=== PATIENT | male | born 1975 | race Hispanic/Latino ===

== ENCOUNTER 2018-09-03 06:36 | Day surgery (SDC) | payer BC ==
[2018-09-02 15:28] LABS: BASOPHILS % (AUTO) 0.4 % (0.0-5.0); EOSINOPHILS % (AUTO) 0.4 % (0.0-8.0); HEMATOCRIT 46.9 % (42-54); MEAN CORPUSCULAR HEMOGLOBIN 29.3 pg (27.0-33.0); MEAN CORPUSCULAR HGB CONC 33.8 g/dL (32.0-36.0); MEAN CORPUSCULAR VOLUME 86.7 fL (79-99); NEUTROPHILS % (AUTO) 75.2 % (40.0-77.0); PLATELET COUNT (AUTO) 298 K/uL (130-400); RED BLOOD CELL COUNT(AUTO) 5.42 MIL/uL (4.50-6.20); RED CELL DISTRIBUTION WIDTH 13.2 % (11.0-15.5); WHITE BLOOD COUNT (AUTO) 10.6 K/uL (4.8-10.8)
[2018-09-02 15:36] VITALS: BP 152/89
[2018-09-02 15:39] LABS: POTASSIUM 4.5 mmol/L (3.5-5.1)
[~2018-09-03] VITALS: Ht 182.9 cm; Wt 116.5 kg
[2018-09-03] VITALS (13 sets, daily range): BP systolic 117–146; BP diastolic 59–88
[2018-09-03] MEDS ORDERED: LIDOCAINE PF 2% 5ML ABBOJECT ONE (06:59)
[2018-09-03] MEDS ORDERED: PROPOFOL 10 MG/ML 20ML VIAL IV ONE ×2 (06:59→08:31)
[2018-09-03] MEDS ORDERED: ONDANSETRON HCL 4 MG/2 ML VIAL ONE (06:59)
[2018-09-03] MEDS ORDERED: FENTANYL CITRATE PF 50 MCG/1 ML 2ML VIAL ONE ×2 (07:00→09:46)
[2018-09-03] MEDS ORDERED: MIDAZOLAM HCL 1 MG/ML 2ML VIAL ONE (07:00)
[2018-09-03] MEDS ORDERED: LACTATED RINGERS 1000ML 1,000 ML IV ONE (07:27)
[2018-09-03] MEDS ORDERED: CLINDAMYCIN 900 MG/D5% WATER 50 ML IV ONE (07:27)
[2018-09-03] MEDS ORDERED: ADDE10 PO (07:51)
[2018-09-03] MEDS ORDERED: PROG100I PO (07:51)
[2018-09-03] MEDS ORDERED: LOSA50TA25 PO (07:51)
[2018-09-03] MEDS ORDERED: [UNRECOGNIZED DRUG - OTHER] IV SCH ×2 (08:00)
[2018-09-03] MEDS ORDERED: PRECEDEX IV SCH ×2 (08:00)
[2018-09-03] MEDS ORDERED: FAMOTIDINE/PF 20 MG/2 ML VIAL IV ONE (08:05)
[2018-09-03] MEDS ORDERED: DEXMEDETOMIDINE HCL 200 MCG in SODIUM CHLORIDE 0.9% 50 ML IV SCH (08:23)
[2018-09-03] MEDS ORDERED: CLINDAMYCIN PHOSPHATE 150 MG/ML 6ML VIAL ONE (08:48)
[2018-09-03] MEDS ORDERED: BUPIVACAINE/PF 0.25% 30ML VIAL IJ ONE (09:22)
[2018-09-03] MEDS ORDERED: TYL3 PO (09:36)
[2018-09-03] MEDS ORDERED: CLIN300C3 PO (09:36)
[2018-09-03] MEDS ORDERED: MEPERIDINE-PF 25 MG/ML SYG ONE ×2 (09:57→10:20)
[2018-09-03] MEDS ORDERED: PROMETHAZINE HCL 25 MG/ML 1ML AMPULE IM ONE (09:58)
== END 2018-09-03 11:28 | disposition home or self-care (01) ==
LOC: DAH 06:36
PROVIDERS: ATTEND Orthopaedic Surgery
DX: G56.01 Carpal tunnel syndrome, right upper limb (principal); I10 Essential (primary) hypertension; K21.9 Gastro-esophageal reflux disease without esophagitis; F15.90 Other stimulant use, unspecified, uncomplicated; Z79.899 Other long term (current) drug therapy; Z87.891 Personal history of nicotine dependence; Z88.0 Allergy status to penicillin; Z79.2 Long term (current) use of antibiotics; Z98.890 Other specified postprocedural states; Z72.89 Other problems related to lifestyle; Z82.49 Family history of ischemic heart disease and other diseases of the circulatory system; Z83.3 Family history of diabetes mellitus
CPT/HCPCS: 36415; 64721; 80048; 85025; A4215; A4649; A4930; A6223; J2001; J2175 ×2; J2250; J2405; J2550; J2704; J3010 ×2; J3490 ×4; J7120

== ENCOUNTER → 2019-04-01 | Outpatient (CLI) | payer BC ==
[~2019-04-01] MED LIST: ADDE10 PO; CLIN300C3 PO; LOSA50TA64 PO; PROG100I PO; TYL3 PO
== END | disposition home or self-care (01) ==
LOC: RAH 09:17
PROVIDERS: ATTEND Family Medicine
DX: R10.9 Unspecified abdominal pain (principal)
CPT/HCPCS: 76700

== ENCOUNTER 2021-02-17 13:52 | Observation (INO) | payer OTHER ==
[~2021-02-17] VITALS: Ht 182.9 cm; Wt 117.5 kg
[~2021-02-17 13:52] MED LIST changes: +MEPERIDINE HCL/PF 25 MG/0.5 ML AMPUL IM PRN
[2021-02-17 14:10] LABS: BASOPHILS % (AUTO) 0.4 % (0.0-5.0); EOSINOPHILS % (AUTO) 0.7 % (0.0-8.0); HEMATOCRIT 35.3 % (42-54); LYMPHOCYTES % (AUTO) 24.2 % (21.0-51.0); MEAN CORPUSCULAR HEMOGLOBIN 28.8 pg (27.0-33.0); MEAN CORPUSCULAR HGB CONC 34.6 g/dL (32.0-36.0); MEAN CORPUSCULAR VOLUME 83.3 fL (79-99); MONOCYTES % (AUTO) 7.3 % (3.0-13.0); NEUTROPHILS % (AUTO) 67.2 % (40.0-77.0); PLATELET COUNT (AUTO) 296 K/uL (130-400); RED BLOOD CELL COUNT(AUTO) 4.24 MIL/uL (4.50-6.20); RED CELL DISTRIBUTION WIDTH 12.7 % (11.0-15.5); WHITE BLOOD COUNT (AUTO) 9.9 K/uL (4.8-10.8)
[2021-02-17 14:28] LABS: CREATININE 1.1 mg/dL (0.5-1.5); POTASSIUM 3.7 mmol/L (3.5-5.1)
[2021-02-17 14:32] LABS: ALBUMIN 3.6 g/dL (3.5-5.0); BILIRUBIN,TOTAL 0.5 mg/dL (0.2-1.0); TOTAL PROTEIN, SERUM 7.1 g/dL (6.0-8.3)
[2021-02-17 14:37] LABS: INR 1.04 (0.85-1.15); PROTHROMBIN TIME 11.3 SEC (9.6-11.6)
[2021-02-17 14:38] LABS: PARTIAL THROMBOPLASTIN TIME 24.8 SEC (26.3-35.5)
[2021-02-17] MEDS ORDERED: PANTOPRAZOLE SODIUM 80 MG in SODIUM CHLORIDE 0.9% 100 ML IVP SCH (16:30)
[2021-02-17] MEDS: LACTATED RINGERS 1000ML 1,000 ML IV SCH ×2 (16:30→21:36)
[2021-02-17] MEDS ORDERED: LACTATED RINGERS 1000ML 1,000 ML IV ONE (16:30)
[2021-02-17] MEDS ORDERED: ACETAMINOPHEN 325 MG TAB PO PRN (16:30)
[2021-02-17] MEDS ORDERED: LACTULOSE 20 GM/30 ML UDCUP PO PRN (16:30)
[2021-02-17] MEDS ORDERED: ACETAMINOPHEN 650 MG SUPPOSITORY RC PRN (16:30)
[2021-02-17] MEDS ORDERED: ONDANSETRON HCL 4 MG/2 ML VIAL IVP PRN (16:30)
[2021-02-17] MEDS ORDERED: PANTOPRAZOLE 40 MG/VIAL IVP SCH (16:30)
[2021-02-17 16:55] LABS: HEMATOCRIT 36.2 % (42-54)
[2021-02-17 17:19] LABS: AMMONIA 45 umol/L (11-32); CREATINE KINASE, TOTAL 107 U/L (21-232); MYOGLOBIN 33 ng/mL (10-92); TROPONIN I < 0.04 ng/mL (0.00-0.06)
[2021-02-17] MEDS ORDERED: PANTOPRAZOLE 40 MG/VIAL ONE (17:31)
[2021-02-17] MEDS ORDERED: SODIUM CHLORIDE 0.9% 100 ML IV ONE (17:37)
[2021-02-17] MEDS ORDERED: ACETAMINOPHEN 325 MG TAB ONE (18:10)
[2021-02-17 21:25] VITALS: BP 146/90
[2021-02-17] MEDS ORDERED: TRAMADOL /APAP 37.5MG/325MG TAB PO PRN (21:45)
[2021-02-17] MEDS ORDERED: MELA1TAB21 PO (22:09)
[2021-02-17] MEDS ORDERED: LOSA100T58 PO (22:09)
[2021-02-17] MEDS ORDERED: INDO75CA3 PO (22:09)
[2021-02-17] MEDS ORDERED: AMPH30TA3 PO (22:09)
[2021-02-17] MEDS ORDERED: LORAZEPAM 2 MG/ML 1 ML VIAL IVP PRN (22:30)
[2021-02-17 23:11] LABS: CREATINE KINASE, TOTAL 62 U/L (21-232); MYOGLOBIN 47 ng/mL (10-92); TROPONIN I < 0.04 ng/mL (0.00-0.06)
[2021-02-18] VITALS (15 sets, daily range): BP systolic 114–150; BP diastolic 71–86
[2021-02-18 04:33] LABS: APPEARANCE,URINE Clear (CLEAR); BILIRUBIN,URINE Negative (NEGATIVE); COLOR,URINE Yellow (YELLOW); GLUCOSE, URINE (UA) Negative (NEGATIVE); KETONES,URINE Negative (NEGATIVE); LEUKOCYTE ESTERASE ,URINE Trace (NEGATIVE); NITRATE,URINE Negative (NEGATIVE); OCCULT BLOOD,URINE Negative (NEGATIVE); PROTEIN,URINE Negative (NEGATIVE)
[2021-02-18 04:40] LABS: AMPHET/METH SCREEN,URINE NEGATIVE (NEGATIVE); BARBITURATE SCREEN, URINE NEGATIVE (NEGATIVE); BENZODIAZEPINES SCREEN,URINE NEGATIVE (NEGATIVE); CANNABINOID SCREEN,URINE POSITIVE (NEGATIVE); COCAINE SCREEN,URINE POSITIVE (NEGATIVE); OPIATE SCREEN,URINE NEGATIVE (NEGATIVE); PHENCYCLIDINE SCREEN,URINE NEGATIVE (NEGATIVE)
[2021-02-18 04:43] LABS: BACTERIA,URINE None Seen /HPF (None Seen); RBC,URINE None Seen /HPF (0-1); SQUAMOUS EPITHELIAL CELL,UR Rare /HPF (0-2); WBC,URINE 0-1 /HPF (0-1)
[2021-02-18] MEDS: LACTATED RINGERS 1000ML 1,000 ML IV SCH (05:00)
[2021-02-18 05:11] LABS: BASOPHILS % (AUTO) 0.5 % (0.0-5.0); EOSINOPHILS % (AUTO) 1.5 % (0.0-8.0); HEMATOCRIT 31.4 % (42-54); LYMPHOCYTES % (AUTO) 27.3 % (21.0-51.0); MEAN CORPUSCULAR HEMOGLOBIN 28.8 pg (27.0-33.0); MEAN CORPUSCULAR HGB CONC 33.4 g/dL (32.0-36.0); MONOCYTES % (AUTO) 8.6 % (3.0-13.0); NEUTROPHILS % (AUTO) 61.7 % (40.0-77.0); PLATELET COUNT (AUTO) 234 K/uL (130-400); RED BLOOD CELL COUNT(AUTO) 3.65 MIL/uL (4.50-6.20); WHITE BLOOD COUNT (AUTO) 7.9 K/uL (4.8-10.8)
[2021-02-18 05:14] LABS: INR 1.06 (0.85-1.15); PROTHROMBIN TIME 11.5 SEC (9.6-11.6)
[2021-02-18 05:19] LABS: B-TYPE NATRIURETIC PEPTIDE < 5 pg/mL (0-100)
[2021-02-18 05:36] LABS: CARBON DIOXIDE 26 mmol/L (21-32); CHLORIDE 105 mmol/L (101-111); CREATINE KINASE, TOTAL 58 U/L (21-232); GLOMERULAR FILTR. RATE CALC 85 mL/min (>60); GLUCOSE,RANDOM 107 mg/dL (70-105); MYOGLOBIN 66 ng/mL (10-92); POTASSIUM 4.3 mmol/L (3.5-5.1); SODIUM SERUM 138 mmol/L (136-145); THYROID STIMULATING HORMONE 1.83 uIU/mL (0.36-3.74); TROPONIN I < 0.04 ng/mL (0.00-0.06); UREA NITROGEN, BLOOD 32 mg/dL (7-18)
[2021-02-18] MEDS ORDERED: PROPOFOL 10 MG/ML 20ML VIAL IV ONE (08:05)
[2021-02-18] MEDS ORDERED: IOHEXOL-350 75 ML VIAL IV ONE (08:37)
[2021-02-18] MEDS ORDERED: M.V.I. IV [ADULT] 10 ML, FOLIC ACID 1 MG, THIAMINE HCL 100 MG in SODIUM CHLORIDE 0.9% 1... IV SCH (09:00)
[2021-02-18 10:48] LABS: HEMATOCRIT 29.5 % (42-54)
[2021-02-18] MEDS ORDERED: PANT40TA55 PO (12:56)
== END 2021-02-18 16:30 | disposition home or self-care (01) ==
LOC: EDH 13:52 → EDHIP 16:16 → INTOOBSV 16:16 → 3DH 20:22
PROVIDERS: ADMIT Internal Medicine Critical Care Medicine; ATTEND Internal Medicine Critical Care Medicine
DX: K92.1 Melena (principal); Z20.822 Contact with and (suspected) exposure to COVID-19; R55 Syncope and collapse; D62 Acute posthemorrhagic anemia; R10.13 Epigastric pain; M19.90 Unspecified osteoarthritis, unspecified site; K27.9 Peptic ulcer, site unspecified, unspecified as acute or chronic, without hemorrhage or perforation; F17.200 Nicotine dependence, unspecified, uncomplicated; F10.10 Alcohol abuse, uncomplicated; F19.10 Other psychoactive substance abuse, uncomplicated
CPT/HCPCS: 36415 ×2; 43235; 71045; 71275; 80048; 80053; 80305; 81001; 82140; 82550 ×3; 82948; 83690; 83874 ×3; 83880; 84443; 84484 ×4; 85014 ×2; 85018 ×2; 85025 ×2; 85378; 85610 ×2; 85730; 86850; 86900; 86901; 87426; 93005; 96361 ×2; 96374; 96375; 99285; A4215; A4606; A4620; A4657; C9113 ×2; G0378 ×22; J2060; J2704; J3411; J3490; J7030 ×2; J7120 ×2; Q9967

== ENCOUNTER → 2024-10-18 | Outpatient (CLI) | payer BC, OTHER ==
[~2024-10-18] MED LIST changes: -ADDE10 PO; +AMPH30TA3 PO; -CLIN300C3 PO; +INDO75CA66 PO; +LOSA100T59 PO; -LOSA50TA64 PO; +MELA1TAB73 PO; -MEPERIDINE HCL/PF 25 MG/0.5 ML AMPUL IM PRN; +PANT40TA55 PO; -PROG100I PO; -TYL3 PO
--- NOTE | 2024-10-18 13:07 | HMCIMG ---
US SOFT TISSUE NECK REASON: localized swelling, mass, or lump in the neck COMPARISON: CT chest 02/18/2021 TECHNIQUE: Images are obtained in the posterior neck in the region of interest. FINDINGS: There are several nodular densities visible in the subcutaneous soft tissues. Largest is 1.8 x 2.8 cm, the smaller nodule is 1.1 x 1.5 cm. These appear most consistent with fatty lesion such as lipoma. Exam appears otherwise unremarkable. IMPRESSION: 1. Probable lipomas in the left posterior neck in the area of interest 2. Otherwise unremarkable exam.
== END | disposition home or self-care (01) ==
LOC: RAH 10:13
PROVIDERS: ATTEND Family Medicine
DX: R22.1 Localized swelling, mass and lump, neck (principal); M54.32 Sciatica, left side
CPT/HCPCS: 76536

== ENCOUNTER → 2024-11-02 | Outpatient (CLI) | payer BC ==
--- NOTE | 2024-11-02 16:09 | HMCIMG ---
MR SPINAL CANAL, LUMBAR WO CON REASON: SCIATICA L SIDE COMPARISON: None TECHNIQUE: Routine lumbar imaging protocol was performed. FINDINGS: There is moderate interspace narrowing at L3-4 and at L4-5 with mild narrowing at L5-S1. There is normal vertebral body alignment. There are no focal osseous lesions. Axial images show widely patent spinal canal and thecal sac. IMPRESSION: 1. Interspace narrowing at multiple levels as described. 2. Otherwise unremarkable exam, no evidence of disc herniation or focal spinal stenosis.
== END | disposition home or self-care (01) ==
LOC: RAH 15:12
PROVIDERS: ATTEND Family Medicine
DX: M48.07 Spinal stenosis, lumbosacral region (principal); M54.17 Radiculopathy, lumbosacral region
CPT/HCPCS: 72148